=== PATIENT | male | born 1975 ===

== ENCOUNTER 2018-04-05 04:56 | Inpatient (IN) | payer MEDICARE, MEDICAID ==
--- NOTE | 2018-04-05 05:03 | C.PDOC ---
History Of Present Illness 42 year old male is sent to the ED from [facility] for admission. Patient was evaluated and medically cleared at [facility]. Patient was accepted by Dr. Lopez. Patient offers no medically complaints. Time Seen by Provider: 04/05/18 05:00 History Per: Patient History/Exam Limitations: no limitations Onset/Duration Of Symptoms: Days Current Symptoms Are (Timing): Still Present Suicide/Self Injury Attempted (Context): None Associated Symptoms: Depression. denies: Suicidal Thoughts, Suicidal Plan Recent travel outside of the [place]: No Additional History Per: Patient, EMS Past Medical History Reviewed: Historical Data, Nursing Documentation, Vital Signs - Medical History PMH: No Chronic Diseases Surgical History: No Surg Hx Family History: States: Unknown Family Hx - Social History Hx Tobacco Use: No Hx Alcohol Use: No Hx Substance Use: No Review Of Systems Constitutional: Negative for: Fever, Chills Cardiovascular: Negative for: Chest Pain, Palpitations Respiratory: Negative for: Cough, Shortness of Breath Gastrointestinal: Negative for: Nausea, Vomiting, Abdominal Pain Skin: Negative for: Rash Psych: Negative for: Suicidal ideation Physical Exam - Physical Exam Appears: Non-toxic, No Acute Distress Skin: Warm, Dry Head: Normacephalic Eye(s): bilateral: Normal Inspection Neck: Supple Chest: Symmetrical Cardiovascular: Rhythm Regular Respiratory: Normal Breath Sounds, No Rales, No Rhonchi, No Wheezing Gastrointestinal/Abdominal: Soft, No Tenderness Extremity: Bilateral: Atraumatic, Normal Color And Temperature, Normal ROM Neurological/Psych: Oriented x3, Normal Speech, Normal Cognition Gait: Steady ED Course And Treatment Pulse Ox Interpretation: Normal Disposition Discussed With DrBlanca: Jossie Lopez Comment: accepted the pt on his service and took over the care at 5:02AM Doctor Will See Patient In The: Hospital Counseled Patient/Family Regarding: Studies Performed, Diagnosis - Disposition Disposition: HOSPITALIZED Disposition Time: 05:01 Condition: FAIR - Clinical Impression Clinical Impression: Bipolar 1 disorder - Scribe Statement The provider has reviewed the documentation as recorded by the Scribe Real Chambers All medical record entries made by the Scribe were at my direction and personally dictated by me. I have reviewed the chart and agree that the record accurately reflects my personal performance of the history, physical exam, medical decision making, and the department course for this patient. I have also personally directed, reviewed, and agree with the discharge instructions and disposition. Decision To Admit - Pt Status Changed To: Hospital Disposition Of: Inpatient - Admit Certification Admit to Inpatient:: After my assessment, the patient will require hospitalizat ion for at least two midnights. This is because of the severity of symptoms shown, intensity of services needed, and/or the medical risk in this patient being treated as an outpatient. - InPatient: Physician Admission Certification: I certify that this patient requires 2 or more midnights of care for the following reason:: After my assessment, the patient will require hospitalization for at least two midnights. This is because of the severity of symptoms shown, intensity of services needed, and/or the medical risk in this patient being treated as an outpatient. - . Bed Request Type: Psychiatry Admitting Physician: Jossie Lopez Patient Diagnosis: Bipolar 1 disorder
[2018-04-05 05:26] VITALS: O2SAT 98
--- NOTE | 2018-04-05 06:34 | PCM.BM ---
<Pino Chin - Last Filed: 04/05/18 06:31> Treatment Plan Problems - Problems identified on initial assessmt Altered Thoughts Process Date Initiated: 04/05/18 Time Initiated: 06:00 Assessment reference: NA Status: Active ANGER MANAGEMENT Date Initiated: 04/05/18 Time Initiated: 06:00 Assessment reference: NA Status: Active Treatment assets and liabiliti Patient Assests: cooperative, self-reliant, ADL independent, negotiates basic needs Patient Liabilities: live alone, financial problems, relationship conflicts, legal issue - Milieu Protocol Maintain good personal hygiene: daily Encourage regular showers, daily Remind patient to perform daily oral care, daily Assist patient to perform ADL's Maintain personal safety: every shift Educate patient to report safety concerns to staff, every shift Monitor environment for contraband/sharps Medication safety: Monitor for expected outcome, potential side effects: every shift, Assess barriers to learning: every shift, Assess readiness for medication education: every shift <Cassie Garcia - Last Filed: 04/06/18 11:36> Family Contact Family involvement: Famliy/SO not involved - Goals for Treatment Patient goals for treatment: "I need housing." Discharge/Continuing Care - Education Needs Education Needs: Patient Medication, Patient Coping Skills, Patient Placement options, Patient Community resources - Discharge Discharge Criteria: Tolerates medication w/o severe side effects, Reduction of target symptoms Discharge to:: Intermediate - Treatment Team Participation Discussed with Family/SO: No Was Patient/Family/SO present at Treatment Team Meeting: Yes <Jossie Lopez - Last Filed: 04/08/18 11:03> - Diagnosis (1) Bipolar 1 disorder Status: Acute Interventions: 04/08/18 11:03 * Assess/adjust medications daily and /or as needed * See patient on an individual basis 7x/week to assess level of manic behaviors and stability * Discuss risks, benefits, side effects and alternatives of medications *
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
[2018-04-06] MEDS: Divalproex 250 mg DR Tab PO SCH ×2 (09:38→17:27)
--- NOTE | 2018-04-06 12:56 | PCM.PYCHPN ---
Psychiatric Progress Note - Psychiatric Progress Note Patient seen today, length of contact: 15 min Patient Chief Complaint: I was feeling depressed and irritable.' Problems Identified/Issues Discussed: Patient was seen and evaluated, chart reviewed and discussed the staff. Patient's reports irritability, agitation and frustration. He reports poor sleep and poor appetite. As per staff he remains isolated and withdrawn. He is starting medication but denies any side effects. Supportive therapy was given Medication Change: Yes Medical Record Reviewed: Yes Mental Status Examination - Cognitive Function Orientation: Person, Place, Situation, Time Memory: Intact Attention: WNL Concentration: Poor Association: WNL Fund of Knowledge: Poor - Mood Mood: Depressed, Anxious - Affect Affect: Broad - Speech Speech: Soft - Formal Thought Process Formal Thought Process: No Impairment - Suicidal Ideation Suicidal Ideation: No - Homicidal Ideation Homicidal Ideation: No Goal/Treatment Plan - Goal/Treatment Plan Need for Continued Stay: Severe depression anxiety Progress Toward Problem(s) and Goals/Treatment Plan: Bipolar disorder mixed moderate CBT Psychoeducation Supportive therapy and group therapy and milieu therapy Depakote 250 mg p.o. twice daily Trazodone 50 mg p.o. nightly Hydroxyzine 25 mg p.o. every 6 hours as needed
[2018-04-07] MEDS: Divalproex 250 mg DR Tab PO SCH ×2 (09:15→17:28)
[2018-04-07] MEDS ORDERED: Pneumococcal 23-Valent Vaccine IM ONE (10:00)
[2018-04-08] MEDS: Divalproex 250 mg DR Tab PO SCH (09:40)
[2018-04-08] MEDS: Divalproex 500 mg DR Tab PO SCH (17:44)
[2018-04-09] MEDS: Divalproex 250 mg DR Tab PO SCH (09:15)
[2018-04-09] MEDS: Divalproex 500 mg DR Tab PO SCH (17:46)
[2018-04-10 06:37] VITALS: RESP 18
[2018-04-10] MEDS: Divalproex 250 mg DR Tab PO SCH (09:05)
[2018-04-10] MEDS: Divalproex 500 mg DR Tab PO SCH (17:02)
--- NOTE | 2018-04-10 23:24 | PCM.PYCHPN ---
Psychiatric Progress Note - Psychiatric Progress Note Patient seen today, length of contact: 16 min Medication Change: Yes Medical Record Reviewed: Yes Mental Status Examination - Cognitive Function Orientation: Person, Place, Situation, Time Memory: Intact Attention: WNL Concentration: Poor Association: WNL Fund of Knowledge: Poor - Mood Mood: Depressed, Anxious - Affect Affect: Broad - Speech Speech: Soft - Formal Thought Process Formal Thought Process: No Impairment - Suicidal Ideation Suicidal Ideation: No - Homicidal Ideation Homicidal Ideation: No Goal/Treatment Plan - Goal/Treatment Plan Need for Continued Stay: Severe depression anxiety
[2018-04-11 06:05] VITALS: BP 114/70; PULSE 105; TEMP 98.4
[2018-04-11] MEDS: Divalproex 250 mg DR Tab PO SCH (09:07)
== END 2018-04-11 11:27 | disposition home or self-care (01) | DRG 885 ==
LOC: C.ER 04:56 → C.5E 05:13
PROVIDERS: ADMIT Psychiatry & Neurology Psychiatry; ATTEND Psychiatry & Neurology Psychiatry
PROC: GZ3ZZZZ Medication Management (ICD-10-PCS; principal; 2018-04-05)
PROC: GZHZZZZ Group Psychotherapy (ICD-10-PCS; 2018-04-05)
PROC: GZ56ZZZ Individual Psychotherapy, Supportive (ICD-10-PCS; 2018-04-05)
DX: F31.62 Bipolar disorder, current episode mixed, moderate (principal); R45.851 Suicidal ideations; R45.850 Homicidal ideations; J45.909 Unspecified asthma, uncomplicated; R73.03 Prediabetes